=== PATIENT | male | born 1940 | race Caucasian/White ===

== ENCOUNTER 2017-06-15 03:03 | Emergency (ER) | payer OTHER ==
[~2017-06-15] VITALS: Ht 167.6 cm; Wt 59.4 kg
[~2017-06-15 03:03] MED LIST: ANTI-DIARRHEA2 MG PO; CALCIUM 600 +1 EAC4 PO; CIPRO500 MG PO; COLACE100 MG PO; COMPAZINE10 MG PO; COUMADIN7.5 MG PO; FLAGYL500 MG PO; FLORASTOR250 MG PO; HYDROCODON-ACE1 EAC7 PO; PREDNISONE20 MG PO; QUESTRAN PACKET4 GM PO; ZANTAC150 M1 PO; ZANTAC150 MG PO; ZOFRAN ODT4 MG PO
[2017-06-15 03:32] LABS: EOSINOPHIL (%) 2.1 % (0-5); EOSINOPHIL COUNT 0.2 K/uL (0-0.3); HEMATOCRIT 37.5 % (38.0-50.0); IMMATURE GRANULOCYTE (%) 1.3 % (0.0-0.7); IMMATURE GRANULOCYTE COUNT 0.1 K/uL; INSTRUMENT ABS NEUTROPHIL CT 6.2 K/uL; MCH 28.1 PG (29.0-34.0); MCHC 31.7 G/DL (30.0-36.0); MCV 88.4 FL (86-99); MEAN PLAT.VOLUME 10.4 uM^3 (9.0-12.4); MONOCYTE (%) 16.1 % (3-12); MONOCYTE COUNT 1.6 K/uL (0-0.8); NEUTROPHIL (%) 60.6 % (45-76); NEUTROPHIL COUNT 6.2 K/uL (1.8-6.4); PLATELET COUNT 154 K/uL (156-360); RBC DIS.WIDTH-CV 15.1 % (11.8-14.6); RBC DIS.WIDTH-SD 48.6 % (39-53); RED BLOOD COUNT 4.24 M/uL (4.00-5.50); WHITE BLOOD COUNT 10.2 K/uL (4.1-10.2)
[2017-06-15 03:43] LABS: CHLORIDE 104 mEq/L (99-109); POTASSIUM 4.2 mEq/L (3.7-5.4); SODIUM 139 mEq/L (136-147)
[2017-06-15 03:45] LABS: GLUCOSE 101 mg/dL (70-99)
[2017-06-15 03:47] LABS: ANION GAP 10 MEQ/L (2-14)
[2017-06-15 03:49] LABS: GFR ESTIMATE (CALCULATED) 53 mL/min/
[2017-06-15 03:50] LABS: UREA NITROGEN (BUN) 24 mg/dL (9-23)
[2017-06-15] MEDS ORDERED: FLOMAX0.4 MG PO (04:51)
[2017-06-15 05:22] LABS: ADD MIUA? YES; BILIRUBIN NEGATIVE; BLOOD SMALL; COLOR STRAW ((YELLOW)); GLUCOSE (STRIP) NEGATIVE; KETONES NEGATIVE; LEUKOCYTES NEGATIVE; NITRITE NEGATIVE; PROTEIN (STRIP) NEGATIVE; SPECIFIC GRAVITY 1.013 (1.000-1.030); UROBILINOGEN 0.2 MG/DL (0.2-1.0)
[2017-06-15 05:39] LABS: BACTERIA NONE SEEN /HPF; EPITHELIAL CELLS NONE SEEN /HPF; MUCUS TRACE /LPF; RED BLOOD CELLS 0-5 /HPF (0-5); UCUL ADDED? NO; WHITE BLOOD CELLS 0-5 /HPF (0-5)
[2017-06-15 06:06] VITALS: BP 129/80
== END 2017-06-15 06:50 | disposition home or self-care (01) ==
LOC: EME 03:03
PROVIDERS: Physician Assistant
DX: N13.2 Hydronephrosis with renal and ureteral calculous obstruction (principal); Z85.72 Personal history of non-Hodgkin lymphomas; I48.91 Unspecified atrial fibrillation; K21.9 Gastro-esophageal reflux disease without esophagitis; M35.3 Polymyalgia rheumatica; Z86.711 Personal history of pulmonary embolism; Z85.038 Personal history of other malignant neoplasm of large intestine
CPT/HCPCS: 74177; 80048; 81003; 85025; 99281; 99285; J7040